=== PATIENT | male | born 1950 | race Caucasian/White ===

== ENCOUNTER 2023-07-16 15:45 | Emergency (ER) | payer MEDICARE, BC ==
[2023-07-16 16:10] VITALS: BP 142/96
[2023-07-16] MEDS: Sodium Chloride 0.9% 10 ML Syringe FLUSH PRN (16:30)
[2023-07-16 16:37] LABS: BASOPHILS PERCENT AUTO 0.2 % (0.0-1.0); EOSINOPHILS PERCENT AUTO 0.2 % (1.0-3.0); HEMATOCRIT 35.5 % (40.0-54.0); HEMOGLOBIN 11.5 g/dL (14.0-18.0); LYMPHOCYTES PERCENT AUTO 17.4 % (20.5-50.1); MEAN CORPUSCULAR HEMOGLOBIN 29.2 pg (27.0-34.0); MEAN CORPUSCULAR HGB CONC 32.4 g/dL (33.0-35.0); MEAN CORPUSCULAR VOLUME 90.1 fL (80-100); MONOCYTES PERCENT AUTO 7.6 % (2-8); NEUTROPHILS PERCENT AUTO 74.6 % (42.2-75.2); PLATELET COUNT,PLT 191 10^3/uL (150-450); RED BLOOD CELL COUNT 3.94 10^6/uL (4.6-6.2); WHITE BLOOD CELL COUNT,WBC 6.3 10^3/uL (5.0-10.0)
[2023-07-16 16:56] LABS: A/G RATIO 1.2; ALBUMIN 3.6 g/dL (3.4-5.0); ANION GAP 12.8 mEq/L (7-13); BILIRUBIN TOTAL 0.6 mg/dL (0.2-1.0); BUN/CREATININE RATIO 20.7 (No establ ref range); CALCIUM 8.6 mg/dL (8.5-10.1); CREATININE 1.16 mg/dL (0.70-1.30); EST CRCL DRUG DOSING (CG) 58.56 mL/min; POTASSIUM,K 3.8 mmol/L (3.5-5.1); PROTEIN TOTAL,TP 6.5 g/dL (6.4-8.2)
[2023-07-16] MEDS ORDERED: Aspirin 81 MG Tab.Chew PO ONE (18:30)
[2023-07-16] MEDS: Metoprolol Succinate 25 MG Tab.ER PO ONE (18:44)
[2023-07-16] MEDS: Apixaban 5 MG Tab PO ONE (18:44)
[2023-07-16 18:45] VITALS: PULSE 88
== END 2023-07-16 18:55 | disposition home or self-care (01) ==
LOC: DL.ED 15:45
DX: I48.91 Unspecified atrial fibrillation (principal); K21.9 Gastro-esophageal reflux disease without esophagitis; Z86.16 Personal history of COVID-19; Z79.01 Long term (current) use of anticoagulants; Z79.899 Other long term (current) drug therapy
CPT/HCPCS: 36415; 71045; 80053; 83605; 83880; 84484; 85025; 93005; 93010; 99284; 99285; A9270; J3490